=== PATIENT | female | born 1990 | race Caucasian/White ===

== ENCOUNTER 2019-04-13 03:52 | Inpatient (IN) ==
[2019-04-13] MEDS ORDERED: Lidocaine 1% 20 ML MDV INFILT PRN (04:05)
[2019-04-13] MEDS ORDERED: Metoclopramide 10 MG/2 ML VIAL IVP PRN (04:05)
[2019-04-13] MEDS ORDERED: Famotidine 20 MG/2 ML VIAL IVP PRN (04:05)
[2019-04-13] MEDS ORDERED: *HR* Nalbuphine 10 MG/ML AMPUL IVP PRN (04:05)
[2019-04-13] MEDS ORDERED: Naloxone 0.4 MG/ML INJ IVP PRN (04:05)
[2019-04-13 04:46] LABS: Basophils % 0.3 %; Eosinophils # 0.1 K/mcL (0.0-0.6); Eosinophils % 0.8 %; Hematocrit 35.6 % (35.3-44.9); Hemoglobin 12.6 g/dL (11.5-15.4); Immature Granulocytes % 0.8 % (0-4); Lymphocytes # 1.4 K/mcL (0.6-4.6); Lymphocytes % 19.1 %; Mean Corpuscular HGB Conc 35.4 g/dL (31.6-35.5); Mean Corpuscular Hemoglobin 32.1 pg (28.0-33.3); Mean Corpuscular Volume 90.8 fL (83.0-100.0); Mean Platelet Volume 10.1 fL (9.4-12.4); Monocytes # 0.7 K/mcL (0.0-1.3); Monocytes % 9.3 %; Platelet Count 229 K/mcL (140-400); Red Blood Count 3.92 M/mcL (3.82-4.97); Red Cell Distribution Width 13.1 % (11.5-14.5); Segmented Neutrophils % 69.7 %; White Blood Count 7.2 K/mcL (4.3-11.1)
[2019-04-13] MEDS: miSOPROStoL 25 MCG TABLET PO PRN ×2 (04:53→10:09)
[2019-04-13 04:54] LABS: Amphetamine Screen,Urine Negative ng/mL (Cutoff=1000); Barbiturate Screen,Urine Negative ng/mL (Cutoff=200); Benzodiazepines Screen,Urine Negative ng/mL (Cutoff=200); Cannabinoid Screen,Urine Negative ng/mL (Cutoff = 50); Cocaine Screen,Urine Negative ng/mL (Cutoff= 300); Opiate Screen,Urine Negative ng/mL (Cutoff=300); Phencyclidine Screen,Urine Negative ng/mL (Cutoff=25)
[2019-04-13] MEDS: Ringers Solution, Lactated 1,000 ML IVC SCH ×2 (10:55→15:35)
[2019-04-13] MEDS ORDERED: Oxytocin 20 units/ LR 1000 mL 20 UNIT/1,000 ML BAG IVC SCH ×2 (13:00→22:38)
[2019-04-13] MEDS ORDERED: Ropivacaine/PF 0.2% 20 ML VIAL EP ONE (14:37)
[2019-04-13] MEDS ORDERED: *HR* FentaNYL (PF) 100 MCG/2 ML VIAL EP ONE (14:37)
[2019-04-13] MEDS ORDERED: EPHEDrine 50 MG/ML VIAL IVP PRN (14:37)
[2019-04-13] MEDS ORDERED: Epidural Premix (fent/bupiv) 110 ML EP ONE (14:41)
[2019-04-13] MEDS ORDERED: Epidural Premix (fent/bupiv) 110 ML EP SCH (14:45)
[2019-04-13] MEDS ORDERED: Ondansetron 4 MG/2 ML VIAL IVP PRN (15:31)
[2019-04-13] MEDS ORDERED: Measles/Mumps/Rubella Vacc 0.5 ML VIAL SQ PRN (22:38)
[2019-04-13] MEDS ORDERED: Rho Immune Globulin 1,500 UNIT SYRINGE IM PRN (22:38)
[2019-04-13] MEDS ORDERED: Benzocaine/Menthol 56 GM AEROSOL SPRAY TP PRN (22:38)
[2019-04-13] MEDS ORDERED: Lanolin 7 G OINT...G. TP PRN (22:38)
[2019-04-13] MEDS ORDERED: Acetaminophen 325 MG TABLET PO PRN (22:38)
[2019-04-14] MEDS: Ibuprofen 600 MG TABLET PO PRN ×3 (01:23→16:08)
[2019-04-14] MEDS ORDERED: Prenatal Vit/FA 1 EACH TABLET PO SCH (09:00)
[2019-04-14 21:08] VITALS: BP 123/84
== END 2019-04-14 23:02 | disposition home or self-care (01) | DRG 807 ==
LOC: 1NENULAB 03:52 → 1NENUOBS 22:37
PROVIDERS: ADMIT Obstetrics & Gynecology; ATTEND Obstetrics & Gynecology